=== PATIENT | female | born 1990 | race African-American/Black ===

== ENCOUNTER 2021-02-28 15:19 | Emergency (ER) | payer OTHER ==
--- NOTE | ~2021-02-28 | EMS ---
[address] [address] EMS Patient Care Report Name: FCO CORTEZ Room #: DEP EDY Alvarez#: [id number] Admission: 02/28/21 Attend Phys: Discharge: 02/28/21 Date of : [birth year] Report #: [id number] THIS REPORT FOR: //name// Report Transmitted: 03/03/2021 10:30 EMS Care Summary [place], [place]/[facility] Incident [id number] @ 02/28/2021 14:43 Incident Location [address] [address] Patient FCO CORTEZ Female, 30 Years 1990 Patient Address [address] [address] Patient History None Reported, Patient Allergies No known allergies, Patient Medications None Reported, Chief Complaint FEVER Disposition Transported No Lights/[place] Dispatch Reason Sick Person Transported To [facility] Narrative PT FOUND STANDING IN BEDROOM OF HER [employer]T. [place] ON SCENE. PT STATES THAT SHE HAS HAS FLU SYMPTOMS. PT STATES THAT SHE WANTS TRANSPORT TO [facility] BY EMS BUT DOES [address] [address] EMS Patient Care Report Name: FCO CORTEZ Room #: DEP M.Roger.#: [id number] Admission: 02/28/21 Attend Phys: Discharge: 02/28/21 Date of : [birth year] Report #: [id number] NOT HAVE ANYONE TO WATCH HER 10 MONTH OLD CHILD. [place]42 CALLS FOR PD TO ARRAGE FOR SOMEONE TO TAKE CARE OF THE CHILD WHILE MOTHER IS AT HOSPITAL. PT STATES THAT SHE HAS NOT BEEN AROUND ANYONE W/ COVID-19 FAR SHE KNOWS, PT IS NOT VACCINATED AGAINST COVID-19. PT HAS FEVER, CHILLS, WEAKNESS AND NAUSEA SYMPTOMS. PT HAS NO VISIBLE TRAUMA. PT HAS NO COMPLAINTS OF PAIN, SOB, CP OR TRAUMA. NO CHANGES NOTED ENROUTE. Initial Vitals @15:04P: 86,R: 16,BP: 110/68,Pain: 0/10,GCS: 15,SpO2: 99,Revised Trauma: 12, Assessments @14:55MENTAL:No Abnormalities,SKIN:No Abnormalities,HEENT:Head/Face: No Abnormalities,LUNG SOUNDS:General: Diarrhea,General: Vomiting,General: Nausea,ABDOMEN:General: Diarrhea,General: Vomiting,General: Nausea,PELVIS//GI:No Abnormalities,EXTREMITIES:PULSE:NEURO:No Abnormalities, Impression Fever Procedures @14:55 ALS Assessment Response: UnchangedSucceeded Timeline 14:41,Call Received 14:41,Dispatch Notified 14:43,Dispatched 14:44,En Route 14:54,On Scene 14:55,At Patient 14:55,ALS Assessment,Response: UnchangedSucceeded, 15:03,Depart Scene 15:04,BP: 110/68 M,PULSE: 86,RR: 16 R,SPO2: 99 Ox,ETCO2: ,BG: ,PAIN: 0,GCS: 15, 15:17,At Destination 15:25,Call Closed Disclaimer [email or web address] Copyright 2021 [place], Subject Company This EMS Care Summary contains data elements from the applicable legal record (which may be displayed differently). It is designed to provide pertinent information for the following purposes: continuity of care, clinical quality, and state data reporting. The complete legal record is available to ED staff and administrators of the receiving hospital in [facility]'s Patient Tracker. All data is provided "as is."
[2021-02-28 15:21] VITALS: BP 125/76
[2021-02-28 18:14] LABS: URINE BILIRUBIN NEGATIVE (Negative); URINE BLOOD 3+ (Negative); URINE CLARITY CLEAR; URINE COLOR YELLOW; URINE GLUCOSE-RANDOM* NEGATIVE (Negative); URINE KETONES 2+ (Negative); URINE LEUKOCYTES-REFLEX NEGATIVE (Negative); URINE PROTEIN (DIPSTICK) 1+ (Negative); URINE SPECIFIC GRAVITY >= 1.030 (1.005-1.035); URINE UROBILINOGEN 0.2 E.U./dl (0.2-1.0)
[2021-02-28 18:20] LABS: URINE NITRITE-REFLEX POSITIVE (Negative)
[2021-02-28 18:22] LABS: BACTERIA-REFLEX >30 Many /HPF (None Seen); CASTS None Seen /LPF (None Seen); CRYSTALS None Seen /LPF (None Seen); SQUAMOUS 4-10 Moderate /LPF (0-3); URINE RBC 1-2 Rare /HPF (NONE SEEN); URINE WBC-REFLEX 0-5 Rare /HPF (0-5)
[2021-02-28] MEDS ORDERED: CEFPODOXIME PR200 M1 PO (21:18)
== END 2021-02-28 16:06 | disposition left against medical advice (07) ==
LOC: ER 15:19
PROVIDERS: Physician Assistant
DX: R11.2 Nausea with vomiting, unspecified (principal); Z20.822 Contact with and (suspected) exposure to COVID-19

== ENCOUNTER 2021-02-28 17:45 | Emergency (ER) | payer OTHER ==
[~2021-02-28] VITALS: Ht 162.6 cm; Wt 42.2 kg
[2021-02-28 18:59] LABS: ABSOLUTE NEUTROPHILS 7.5 thou/uL (1.4-8.2); BASOPHILS 0.1 % (0.0-2.0); EOSINOPHILS 0.8 % (0.0-3.0); HEMOGLOBIN 11.6 gm/dL (12.0-15.0); LYMPHOCYTES 7.6 % (24.0-44.0); MCH 25.7 pg (26.0-34.0); MCHC 32.1 g/dL (28.0-37.0); MCV 80.1 fL (80.0-100.0); MONOCYTES 4.4 % (1.0-8.0); PLATELET COUNT 258 thou/uL (150-400); POLYS 87.1 % (36.0-66.0); RBC 4.49 mil/uL (4.20-5.00); RDW 17.4 % (10.5-14.5); WBC 8.6 thou/uL (4.0-11.0)
[2021-02-28 19:12] LABS: CALCIUM 8.9 mg/dL (8.5-10.1); CREATININE 0.6 mg/dL (0.6-1.0); POTASSIUM 3.2 mmol/L (3.5-5.1)
[2021-02-28 19:16] LABS: ALBUMIN 3.9 g/dL (3.4-5.0); TOTAL BILIRUBIN 0.4 mg/dL (0.2-1.0); TOTAL PROTEIN 7.6 g/dL (6.4-8.2)
[2021-02-28 20:22] VITALS: BP 123/76
[2021-02-28 20:59] LABS: URINE BILIRUBIN NEGATIVE (Negative); URINE BLOOD 3+ (Negative); URINE CLARITY CLEAR; URINE COLOR YELLOW; URINE GLUCOSE-RANDOM* NEGATIVE (Negative); URINE KETONES 2+ (Negative); URINE LEUKOCYTES-REFLEX NEGATIVE (Negative); URINE PROTEIN (DIPSTICK) 1+ (Negative); URINE SPECIFIC GRAVITY >= 1.030 (1.005-1.035); URINE UROBILINOGEN 0.2 E.U./dl (0.2-1.0)
[2021-02-28 21:01] LABS: URINE NITRITE-REFLEX POSITIVE (Negative)
[2021-02-28 21:07] LABS: AMORPHOUS URATES Few /LPF (None Seen); CASTS None Seen /LPF (None Seen); SQUAMOUS 4-10 Moderate /LPF (0-3); URINE RBC 1-2 Rare /HPF (NONE SEEN); URINE WBC-REFLEX 0-5 Rare /HPF (0-5)
[2021-02-28] MEDS ORDERED: CEFPODOXIME PR200 M1 PO (21:18)
== END 2021-02-28 21:39 | disposition home or self-care (01) ==
LOC: ER 17:45
PROVIDERS: Emergency Medicine
DX: N39.0 Urinary tract infection, site not specified (principal); R10.32 Left lower quadrant pain; R10.12 Left upper quadrant pain; F17.200 Nicotine dependence, unspecified, uncomplicated